=== PATIENT | male | born 1970 | race African-American/Black ===

== ENCOUNTER 2019-06-10 08:57 | Emergency (ER) | payer OTHER ==
[~2019-06-10] VITALS: Ht 175.3 cm; Wt 82.3 kg
[2019-06-10 08:58] VITALS: BP 115/76
--- NOTE | 2019-06-10 10:16 | REP ---
Right hand four views: There is a nondisplaced intra-articular fracture at the base of the fifth digit metacarpal. Mineralization and joint spaces are otherwise unremarkable. There are no calcifications or foreign bodies. Electronically Signed by Johnie Wheeler MD 06/10/2019 10:07 A
== END 2019-06-10 10:35 | disposition home or self-care (01) ==
LOC: M ED 08:57
DX: S62.346A Nondisplaced fracture of base of fifth metacarpal bone, right hand, initial encounter for closed fracture (principal); W23.0XXA Caught, crushed, jammed, or pinched between moving objects, initial encounter; Y92.89 Other specified places as the place of occurrence of the external cause; Y93.9 Activity, unspecified; Y99.0 Civilian activity done for income or pay